=== PATIENT | female | born 1955 | race Two or more races ===

== ENCOUNTER → 2016-05-04 | Outpatient (CLI) | payer OTHER ==
[~2016-05-04] MED LIST: ASPIRIN (CHILDR81 MG PO; ATIVAN 0.5MG0.5 MG PO; DDAVP0.1 MG PO; DESMOPRESSIN NS; ELAVIL25 MG PO; KEPPRA500 M1 PO; NASAL SPRAY30 M1 NS; NORCO 5-325 TA1 EACH PO; PRILOSEC20 MG PO; PRINIVIL OR ZES10 MG PO; REMERON15 M2 PO; TYLENOL325 MG PO; ULTRAM50 MG PO; ZOFRAN4 MG PO; ZOLOFT25 M1 PO
== END | disposition disaster alternative care site (69) ==
LOC: LHSC 15:50
DX: D12.0 Benign neoplasm of cecum (principal); Z12.11 Encounter for screening for malignant neoplasm of colon; K57.30 Diverticulosis of large intestine without perforation or abscess without bleeding

== ENCOUNTER 2016-05-16 14:00 | Inpatient (IN) | payer OTHER ==
[~2016-05-16] VITALS: Ht 162.6 cm; Wt 85.0 kg
--- NOTE | ~2016-05-16 | CON ---
PATIENT'S NAME: [facility] AGE: 60 Y [address] ROOM: [place] [address] [place] [facility] [place] DATE: 05/21/2016 Consultation DISCHARGE DATE: FAMILY PHYSICIAN: Gladys Jeff MD ATTENDING PHYSICIAN: Mal Garza DATE OF CONSULTATION: 05/21/2016 REFERRING PHYSICIAN: PORSCHE MARLEY MD REASON FOR CONSULTATION: Medical management. HISTORY OF PRESENT ILLNESS: The patient is a 60-year-old female, unfortunately not a very forthcoming historian, who does have a past medical history of a cerebral aneurysm with questionable rupture, clipping, and resulting diabetes insipidus. The patient is postop day #0 for resection of right-sided colon adenoma. Medical management has been requested for the care of the patient. At this point, the patient is being seen in the recovery room. Her primary concern is anxiety over having been here for a very long time. She denies any shortness of breath, chest pain, nausea, vomiting, or palpitations. REVIEW OF SYSTEMS: All systems have been reviewed and negative except pertinent positives mentioned above. PAST MEDICAL HISTORY: Not complete due to the patient's noncooperation but is significant for essential hypertension; diabetes insipidus, on intranasal DDAVP; history of cerebral aneurysm. SURGICAL HISTORY: Not fully known, the patient is not very forthcoming. SOCIAL HISTORY: Denies any ongoing toxic habits. FAMILY HISTORY: Significant for colon cancer in her mother. CURRENT MEDICATIONS: 1. Amitriptyline. 2. Aspirin. 3. Desmopressin. PATIENT'S NAME: [facility] AGE: 60 Y [address] ROOM: [place] [address] [place] [facility] [place] DATE: 05/21/2016 Consultation DISCHARGE DATE: FAMILY PHYSICIAN: Gladys Jeff MD ATTENDING PHYSICIAN: Mal Garza 4. Hydrocodone/acetaminophen. 5. Lisinopril. 6. Lorazepam. 7. Omeprazole. 8. Ondansetron. PHYSICAL EXAMINATION: VITAL SIGNS: Her heart rate is 95, blood pressure is 125/65, saturating 88% on room air and 92% on nasal cannula, afebrile, respirations 16. GENERAL: Appears as a well-developed, well-nourished, middle-aged female, in no acute distress, though visibly irritated. NEUROLOGIC: Nonfocal. EYES: Pupils are equal and reactive to light. LYMPHATIC: No cervical lymphadenopathy. ENDOCRINE: No thyromegaly. LUNGS: Clear to auscultation with a diminished inspiratory effort. GI: Deferred. VASCULAR: Shows 2+ pedal pulses. SKIN: Warm and dry. PSYCHIATRIC: Slightly irritated mood and difficulty remembering facts that I would expect her to remember. LABORATORY DATA: No studies are available as of yet. IMPRESSION AND RECOMMENDATIONS: This is a 60-year-old female, postop day #0 for resection of right-sided colon cancer. Individual problems to be addressed. 1. Essential hypertension. Recommend continuing the patient on lisinopril as you already have. We will monitor her electrolytes and blood pressure. 2. Diabetes insipidus. The patient has been continued on her DDAVP and we will monitor her electrolytes as part of postop course. 3. Anxiety. The patient has been continued on her lorazepam. 4. Deep venous thrombosis prophylaxis as per primary team. Gastrointestinal prophylaxis as per primary team. We will follow the patient with you. Thank you for allowing us to participate in the care of this patient. Time dedicated to this patient's encounter is 25 minutes. PORSCHE MARLEY MD PATIENT'S NAME: CHATO BRITO [facility] AGE: 60 Y [address] ROOM: [address] [address] [place] [facility] [place] DATE: 05/21/2016 Consultation DISCHARGE DATE: FAMILY PHYSICIAN: Gladys Jeff MD ATTENDING PHYSICIAN: Mal Garza/margaux /[id number] d: 05/22/16 0045 t: 05/27/16 1222, CONSULTATION REPORT
--- NOTE | ~2016-05-16 | CON ---
PATIENT'S NAME: [facility] AGE: 60 Y [address] ROOM: [place] [address] LOCATION: [facility] [place]MIT DATE: 05/21/2016 Consultation DISCHARGE DATE: FAMILY PHYSICIAN: Gladys Jeff MD ATTENDING PHYSICIAN: Mal Garza DATE OF CONSULTATION: 05/22/2016 REFERRING PHYSICIAN: PORSCHE MARLEY MD CARDIOLOGY CONSULTATION REASON FOR CARDIOLOGY CONSULTATION: Bradycardia. HISTORY OF PRESENT ILLNESS: This is a 60-year-old female, admitted with a need for a colon resection of a right-sided colon adenoma. 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 She has a previous history which includes hypertension, anxiety, history of a brain aneurysm clipping about 2 years ago, and subsequent diabetes insipidus for which she uses DDAVP. At the time of this consult, she is resting comfortably in bed without current complaints. She does admit to having previous complaints of palpitations and tachycardia, especially with anxiety attacks, but she currently has no complaints of chest pain, shortness of breath, dyspnea on exertion, or palpitations. She does admit to some nausea, but denies vomiting. Once again, denies overall chest pain or difficulty with shortness of breath or dyspnea on exertion. She denies any presyncope or syncope, and is unaware of her bradycardia episodes other than the nurses informing her. She had no pre-emptive aura and was unable to tell a difference from her regular heart rate. PAST MEDICAL HISTORY: As listed in the HPI. FAMILY HISTORY: The patient's mother had a history of colon cancer. Her father had a history of aortic aneurysm as well as heart disease, and she has a brother with a history of heart disease. SOCIAL HISTORY: The patient is a current daily smoker. She smokes one pack per day and has done so for the last 40 years. She denies alcohol or illicit drug use. CURRENT MEDICATIONS: 1. Protonix 40 mg IV daily. PATIENT'S NAME: [facility] AGE: 60 Y [address] ROOM: [address] [address] LOCATION: [facility] [place] ADMIT DATE: 05/21/2016 Consultation DISCHARGE DATE: FAMILY PHYSICIAN: Gladys Jeff MD ATTENDING PHYSICIAN: Mal Garza 2. KCl 20 mEq IV. 3. Ofirmev 1000 mg IV every 6 hours. 4. Morphine sulfate SENIOR INFORMATION SYSTEMS ARCHITECT. 5. Aspirin 81 mg p.o. daily. 6. Ativan 0.5 mg p.o. daily in the evening. 7. DDAVP 0.3 mg p.o. twice daily. 8. Elavil 25 mg p.o. daily in the evening. 9. Prinivil 10 mg p.o. daily. 10. Protonix 40 mg p.o. daily. 11. Lovenox 40 mg subcutaneous daily. 12. Nicoderm 21 mg transdermally daily. MEDICATION ALLERGIES: Penicillin causing hives. REVIEW OF SYSTEMS: Pertinent positive review of systems are listed in the HPI. All other review of systems are evaluated and negative. LABORATORY DATA AND IMAGING STUDIES: Diagnostics: CMS evaluation shows a sodium of 152, potassium 3.6, BUN of 13, creatinine 0.7, and a glucose of 122. CBC evaluation shows a white blood cell count of 13.4, hemoglobin of 13.6, hematocrit of 44.0, and platelets of 172,000. She has a magnesium level of 2.1, TSH of 1.26, and a free T4 of 1.1. She also has a proBNP of 335. PHYSICAL EXAMINATION: VITAL SIGNS: Temperature 97.8, pulse 57, respirations 15, blood pressure 135/65, and O2 saturation 93% on 2 L nasal cannula. The patient weighs 85 kg. SKIN: [place], warm, and dry. EYES: Sclerae clear. No xanthelasmas. ENT: Oral mucosa is pink and moist. No jugular venous distention. No carotid bruits. CHEST: Respirations are even and unlabored. LUNGS: Clear to auscultation. HEART: Irregularly irregular rate and rhythm. She shows a sinus arrhythmia on her EKG with some noted sinus bradycardia. Normal S1 and S2. No murmurs, rubs, or gallops. ABDOMEN: Soft and slightly tender to palpation. She also has hypoactive bowel sounds x4. MUSCULOSKELETAL: Equal muscle strength in the upper and lower extremities bilaterally against resistance. EXTREMITIES: Peripheral pulses palpable. No clubbing, cyanosis, or edema. PSYCHIATRIC: Alert and oriented x2. She is disoriented to time and was initially unsure of how long she had been in the hospital, but she is also PATIENT'S NAME: CHATO BRITO [facility] AGE: 60 Y [address] ROOM: [address] [address] LOCATION: [facility] [place] ADMIT DATE: 05/21/2016 Consultation DISCHARGE DATE: FAMILY PHYSICIAN: Gladys Jeff MD ATTENDING PHYSICIAN: Mal Garza noted to be slightly drowsy from her SENIOR INFORMATION SYSTEMS ARCHITECT. IMPRESSION AND PLAN: Per Dr. Ross: 1. Sinus arrhythmia with bradycardia. Her TSH is within normal levels. We will continue to observe on telemetry. Question if this is possibly sleep-related. Her EKG shows no acute ST changes, and she does have a QTc within normal limits of 429. 2. Need to rule out coronary artery disease. We will check a set of cardiac enzymes now and every 6 hours x3 values as well as an echocardiogram to fully evaluate ejection fraction as well as to look for wall motion and valvular abnormalities. We will check a lipid panel, and an EKG again in the a.m. 3. Hypertension. 4. Colon adenoma status post resection. 5. History of diabetes insipidus with use of DDAVP. Once again, this is a 60-year-old female, admitted for an elective laparoscopic-assisted right hemicolectomy. She was found to have some bradycardia and an occasional two-second pause. We will continue to monitor, evaluate, and treat as appropriate. Thank you for this consult. Thank you for allowing [facility] to interact in the care of this patient. HIMANSHU ALCARAZ APRN FOR GURPREET-MD PENNY YO/armidal /[id number] d: 05/23/162 t: 05/31/16 1432, CONSULTATION REPORT
--- NOTE | ~2016-05-16 | OR ---
PATIENT'S NAME: CHATO BRITO [facility] AGE: 60 Y [address] ROOM: [address] [address] [place] [facility] [place]: 05/21/2016 OR/Procedure Report DISCHARGE DATE: FAMILY PHYSICIAN: Gladys Jeff MD ATTENDING PHYSICIAN: Mal Gonsalez SURGEON: Mal Gonsalez MD DIRECTOR OF MARKETING AND PROMOTIONS: Boaz Guzman PA-C. 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 PROCEDURE PERFORMED: Laparoscopic-assisted right hemicolectomy. ANESTHESIA: General. ESTIMATED BLOOD LOSS: Less than 50 mL. SPECIMEN: Terminal ileum, right colon, proximal transverse colon. INDICATION: The patient is a 60-year-old young lady whose mother had colon cancer, went for a screening colonoscopy per Dr. Jeff. A sessile lesion was noted around the ileocecal valve region. Biopsies taken showed adenoma, but was not resectable by endoscopic means and recommended right hemicolectomy. DESCRIPTION OF PROCEDURE: After informed consent, the patient was taken to the operating room. After general endotracheal anesthesia, the patient's abdomen was prepped and draped into a sterile field. A time-out was performed. We confirmed the patient, planned procedure and administration of preop antibiotics. We began by injecting local anesthetic prior to each incision. The first one made below the umbilicus in the midline and carried down to identify the anterior fascia through which a Veress needle inserted. Pneumoperitoneum created. Trocar and laparoscope inserted. We then placed a right lower quadrant 5 mm and left upper quadrant 5 mm port. We had a lot of adhesions from her previous open cholecystectomy in the right upper quadrant and time was spent sharply taking down these adhesions from the anterior abdominal wall. We freed up the omentum from its attachment to the right colon. We then mobilized up the terminal ileum and retracted the cecum medially and then took down the peritoneal reflection and elevated it all the way up to the midline. We progressed up to the hepatic flexure. We then lifted up the transverse colon, created a window so that we could work from both sides taking down the hepatic flexure which was stuck up to the liver. Sharply using the LigaSure, we took down the hepatic flexure. We identified the duodenum. It was not hard. We rolled the hepatic flexure medially. Once PATIENT'S NAME: CHATO BRITO [facility] AGE: 60 Y [address] ROOM: [address] [address] [place] [facility] [place] DATE: 05/21/2016 OR/Procedure Report DISCHARGE DATE: FAMILY PHYSICIAN: Gladys Jeff MD ATTENDING PHYSICIAN: Mal Gonsalez we had enough mobilization, we made a 4-inch incision in the periumbilical region and placed a wound protector. We grabbed the terminal ileum and cecum and eviscerated out through the wound. Approximately 8 inches from the ileocecal valve, we divided the terminal ileum with a ROSEMARIE 80. We used the LigaSure or 2-0 silk ties to ligate the ileocolic and right colic vessel. We then divided the point in the proximal to mid transverse colon with ROSEMARIE 80. The specimen was sent to the back table. We then placed the transverse colon, ileum, ierw-se-omra did enterotomies, fired a ROSEMARIE 80 between them to create a rvba-di-xxmr anastomosis. We then closed the enterotomy with TA 60. We closed the mesentery defect with interrupted 3-0 silks. There was no evidence of bleeding. Patent anastomosis with viable bowel noted. We dropped it back into the peritoneal cavity and placed the omentum over it. We had a correct instrument, sponge, and needle count. We closed the midline fascia with 0 looped PDS and closed the skin with subcuticular 4-0 Vicryl. Steri-Strips and sterile dressings applied. The patient tolerated the procedure well and transferred to recovery room in stable condition. MAL GONSALEZ MD WTS/modl /[id number] d: 05/23/16 08 t: 05/23/16 1742, OPERATIVE SUMMARY
--- NOTE | ~2016-05-16 | DS ---
PATIENT'S NAME: TINA BRITO [facility] AGE: 60 Y [address] ROOM: [address] [address] [place] [facility] [place] DATE: 05/21/2016 Discharge Summary DISCHARGE DATE: 05/28/2016 FAMILY PHYSICIAN: Gladys Jeff MD ATTENDING PHYSICIAN: Mal Garza DIAGNOSES: 1. Adenoma of the ileocecal valve. 2. History of brain aneurysm with subsequent diabetes insipidus, sinus arrhythmia with bradycardia, essential hypertension, anxiety. SUMMARY: Tina Brito is a 60-year-old female, who was referred to Dr. Garza by Dr. Jeff after a colonoscopy showed a mass in her cecum near the ileocecal valve. Biopsy showed adenoma. Dr. Garza discussed surgical treatment options with the patient along with risks, benefits, and alternatives. The patient was admitted to [facility] on the morning of May 21 to undergo a laparoscopic-assisted right hemicolectomy. She received Invanz 1 g IV preoperatively. Please see Dr. Garza's procedure note for specifics on the operation. Postoperatively, the patient was allowed activity as tolerated. Esposito catheter was placed to dependent drainage and removed on May 22. Lovenox was ordered for DVT prophylaxis and a morphine SOFTWARE DEVELOPER MANAGER was ordered for pain control. The hospitalist was consulted due to her history of diabetes insipidus and to help manage other medical concerns that may arise. On postop day 1, the patient was very sore. Denied nausea. Vital signs were stable. White blood cell count was 13.4. Sodium was 152. IV acetaminophen was added for pain control. PT and OT were ordered. Later that morning, the patient had some bradycardia and Cardiology was consulted. On postop day #2, the patient complained of nausea, but pain was under better control. Sodium was down to 144, potassium 3.3, phosphorus 1.8. Cardiac enzymes were negative. K-Phos 40 mEq IV over 4 hours was given. On postop day #3, sodium was down to 129. Her IV was saline locked. She was started on clear liquids. SOFTWARE DEVELOPER MANAGER was discontinued. Lincoln and Tylenol were ordered for pain control. Again, K-Phos 1 packet p.o. was given. On postop day #4, sodium was 125. On postop day #6, the patient was advanced to full liquids and subsequently a surgical soft diet. Sodium was up to 128. On postop day #7, the patient was concerned about some appointment that she thought she had today. She stated that she was tolerating diet, bowels were working. She felt that she could do this at home. Blood pressure was 108/59, pulse 84, respirations 16. Incisions were intact. Abdomen was soft. Sodium was 131, potassium 3.3. K-Phos 1 packet p.o. will be given today. Tentative arrangements are being made for the patient to discharge home today. DISCHARGE INSTRUCTIONS: Include no restrictions on diet. No lifting greater than 20 pounds. Follow up with Dr. Garza in 10 to 14 days. She will continue all of her home medications, which include Elavil 25 mg p.o. at PATIENT'S NAME: TINA BRITO [facility] AGE: 60 Y [address] ROOM: [place] [address] [place]: [facility] [place]MIT DATE: 05/21/2016 Discharge Summary DISCHARGE DATE: 05/28/2016 FAMILY PHYSICIAN: Gladys Jeff MD ATTENDING PHYSICIAN: Mal Garza bedtime, aspirin 81 mg p.o. q.a.m., Prinivil 10 mg p.o. q.a.m., Ativan 0.5 mg p.o. at bedtime, Prilosec 20 mg p.o. q.a.m., Lincoln 5/325 mg 1 to 2 p.o. q.4 hours p.r.n. pain, Zofran 8 mg p.o. q.8 hours p.r.n. nausea, and DDAVP 0.3 mg p.o. twice daily. No new prescriptions were written at this time. Final pathology results showed an adenoma of the ileocecal valve with 7 benign lymph nodes. LINA MCGRATH PA-C FOR MD MARCUS SHINE/margaux /[id number] d: 05/28/16 0828 t: 06/07/16 1033, DISCHARGE SUMMARY
--- NOTE | ~2016-05-16 | ECHO ---
Transthoracic Echocardiography Report (TTE) Demographics Patient Name ALISHA, Date of Study 05/23/2016 CHATO Henry Patient Number [id number] Visit Number [id number] Date of 1955 Room Number G3201 [facility] [id number] Gender Female Number Age 60 year(s) Referring Tomer Macias MD Indoor Landscaper/Gardener Lillie Simpson, Physician Kayla Resendez RT,RVT,RDCS Jt Mckeon Physician Interpreting Dagoberto Laguerre Tax Accounting Assistant Physician Supervising Ordering Kayla Resendez MD/MLP Physician Jt RODRIGUEZ Nurse Stress Supervisor Laboratory Conclusions Contractility Score Summary Normal Left Ventricular contractility was noted. Summary The estimated left ventricular ejection fraction is 60%. Mild concentric left ventricular hypertrophy. Diastolic assessment reveals Grade I diastolic dysfunction. No significant valvular abnormalities. Procedure Type of Study TTE procedure:2D Echocardiogram, M-Mode, Doppler , Color Doppler. Procedure Date Date: 05/23/2016 Start: 07:42 AM Study Location: Inpatient Portable Technical Quality: Adequate visualization Indications:Bradycardia. Appropriate Use Criteria: 2 Patient Status: Routine HR: 64 bpm BP: 152/87 mmHg M-Mode/2D Measurements LV Diastolic Dimension: 3.56 cm LV Systolic Dimension: 2.4 cm LV Septum Diastolic: 1.28 cm LV PW Diastolic: 1.17 cm AO Root Dimension: 2.5 cm Cardiac Output: 3.88 l/min AV Cusp Separation: 2.2 cm RV Diastolic Dimension: 3.35 cm LA volume: 33 ml LVOT: 2.1 cm RV Base: 3.08 cm LVOT VTI: 17.5 cm RV Mid: 2.79 cm LV Stroke volume: 60.58 ml TAPSE: 1.82 cm TDI-S': 11.3 cm/s Doppler Measurements AV Peak Velocity: 1.08 m/s MV Peak E-Wave: 0.66 m/s AV Peak Gradient: 4.67 mmHg MV Peak A-Wave: 0.91 m/s AV Mean Gradient: 3 mmHg MV E/A Ratio: 0.73 LVOT Peak Velocity: 0.85 m/s MV P1/2t: 83 msec MV Deceleration Time: 257 msec TR Gradient:26.21 mmHg PV Peak Velocity: 0.81 m/s Estimated RAP:3 mmHg PV Peak Gradient: 2.6 mmHg Estimated RVSP: 29 mmHg Estimated PASP: 29.21 mmHg E' Septal Velocity: 0.06 m/s A' Septal Velocity: 0.09 m/s E' Lateral Velocity: 0.06 m/s A' Lateral Velocity: 0.14 m/s Findings Left Ventricle The left ventricle is normal in size . Mild concentric left ventricular hypertrophy. Diastolic assessment reveals Grade I diastolic dysfunction. Right Ventricle Normal right ventricle structure and function. Left Atrium Normal left atrial size. Right Atrium Normal right atrial size. IVC measures 1.75 cm with inspiratory collapse. Mitral Valve Normal mitral valve structure and function. Aortic Valve Normal aortic valve structure and function. Tricuspid Valve Normal tricuspid valve structure and function. Trivial tricuspid regurgitation by color Doppler. Pulmonic Valve Normal pulmonic valve structure and function. Trivial pulmonic valve regurgitation by color Doppler. Pericardial Effusion No evidence of pericardial effusion. Miscellaneous Visualized portions of the aortic root and ascending aorta appear normal in size. Pleural Effusion No evidence of pleural effusion. Contractility Score LV regional wall motion:(0-Non visualized 1-Normal 2-Hypokinesis 3-Akinesis 4-Dyskinesis 5-Aneurysm) Signature dtt: JOHNNY GRIMES dtd: 05/23/16 0742 Physician Self Edit
[~2016-05-16 14:00] MED LIST changes: -TYLENOL325 MG PO
--- NOTE | 2016-05-21 19:24 | NUR ---
Significant Event: PATIENT ALERT AND ORIENTED X 3. HX FORGETFUL/SHORT TERM MEMORY LOSS. HX CVA'S WITH LEFT SIDED WEAKNESS. VSS. OXYGEN TITRATED TO 2L NC. ETCO2 IN PLACE WITH INITIATION OF ESCAPEMENT MAKER; 30-40s. PAIN ISSUES IN PACU. SEE EMAR FOR MEDS GIVEN. MORPHINE ESCAPEMENT MAKER INFUSING WITH DEMAND DOSE ONLY. NEEDS REMINDED TO HIT BUTTON IF NEEDED. PATIENT RATING PAIN "MORE TOLERABLE" SINCE 1300. HAS BEEN SLEEPING OFF/ON WITH EYES CLOSED. PLEASE NOTE IV OFIRMEV AND TORADOL ADMINISTRATION IN PACU. LAP SITES X 3. SPOT OF SEROSANGUINOUS DRAINAGE TO RIGHT QUADRANT ONLY, OTHERS ARE CLEAN, DRY, AND INTACT. 16 FR JOY TO DD. HX DIABETES INSIPIDOUS, STRICT I&O. 300 ML UOP. PATIENT REPOSITIONED SIDE TO SIDE IN PACU WITH PILLOWS. NPO, ICE CHIPS. FAMILY UPDATED ON PATIENT/ROOM STATUS AT 0950, 1046, 1131, 1251, 1422, 1501, 1517, 1627, 1640. PATIENT HELD IN PACU WAITING FOR ROOM FROM 1250 - 1649. Follow up:
--- NOTE | 2016-05-21 19:35 | NUR ---
Significant Event: Patient to the room at 1705 from PACU. EBL of 100 ml. Patient received a total of Fentanyl 200 mcg, Toradol 30 mg, Dilaudid 0.4 mg and Ofirmev 1 gm in PACU. Morphine MEDICAL REFERRAL COORDINATOR to demand only with 1 mg bolus and a 10 min lockout. Ambulated to the recliner from the surgery cart with assist. Esposito patent and drains yellow urine. Patient taking ice chips in orally, denies nausea. O2 at 2 l/nc with sats in the low 90's. Telemetry post op. Follow up: Monitor pain
--- NOTE | 2016-05-21 19:37 | NUR ---
PACU VITALS PLACED ON CHART.
[2016-05-22 05:10] LABS: BASOPHIL # 0.1 K/uL (0.0-0.2); BASOPHIL % 0.4 %; EOSINOPHIL # 0.4 K/uL (0.0-0.5); EOSINOPHIL % 2.8 %; HEMOGLOBIN 13.6 g/dL (10.0-15.0); IMMATURE GRANULOCYTE # 0.1 K/uL (0.0-0.3); IMMATURE GRANULOCYTE % 0.4 %; LYMPHOCYTE # 2.3 K/uL (0.8-4.0); LYMPHOCYTE % 16.8 %; MCH 29.6 pg (27.0-34.0); MCHC 30.9 gm/dL (32.0-36.5); MCV 95.9 fl (83.0-98.0); MONOCYTE # 0.8 K/uL (0.0-1.0); MONOCYTE % 6.2 %; MPV 10.7 fl (9.4-12.4); NEUTROPHIL # (ANC) 9.9 K/uL (1.8-7.8); NEUTROPHIL % 73.4 %; NRBC % 0 /100WBC (0-0.00); PLATELET COUNT 172 K/uL (150-450); RBC 4.59 M/uL (3.50-5.50); RDW-CV 15.2 % (11.9-14.6); WBC 13.4 K/uL (4.0-11.0)
[2016-05-22 05:22] LABS: BLOOD UREA NITROGEN 13 mg/dL (6-24); CALCIUM 7.7 mg/dL (8.5-10.5); CO2 27 mMol/L (22-32); CREATININE 0.7 mg/dL (0.5-1.1); ESTIMATED GFR (MDRD EQUATION) > 60; POTASSIUM 3.6 mMol/L (3.7-5.1)
[2016-05-22 05:30] LABS: ANION GAP 9.6 (10.0-19.0); CHLORIDE 119 mMol/L (96-110); SODIUM 152 mMol/L (135-145)
--- NOTE | 2016-05-22 07:01 | NUR ---
Significant Event:PT IS A/ O X3 BUT FORGETFUL. PT HAS MIDLINE TO L UPPER ARM W/ D5 1/2 NS@ 125. MORPHINE RECONSTRUCTIVE SURGEON W/ 1MG DEMAND. LAP SITES X3 TO ABDOMEN W/ YON AND TAGEDERMS. HAVE SMALL SPOT OF SHADOW DRAINAGE TO BOTTOM RIGHT DRESSING. PT IS NPO W/ ICE CHIPS. PT LIKES WARM BLANKETS TO HER ABDOMEN. JOY WAS REMOVED @ SHIFT CHANGE. PT REMAINS ON 2 L PER NC TO KEEP SATS>90%. ENCOURAGE AMBULATION. NICOTINE PATCH TO RIGHT SHOULDER. Follow up:CONTINUE TO MONITOR PAIN-RECONSTRUCTIVE SURGEON.
[2016-05-22 11:28] LABS: MAGNESIUM 2.1 mg/dL (1.3-2.6)
--- NOTE | 2016-05-22 14:04 | NUR ---
Significant Event: Pt states pain tolerable with BARTENDER SERVER. MS BARTENDER SERVER at 1mg q 10 min demand. Flat affect, short term memory loss but uses call light appropriately. Refused to walk in rodrigues with therapy. Up in recliner x1 so far with much encouragement. Voiding fine. 3 stab sites to abd d/i. Bradycardiac, 39-55. Asymptomatic. Tele called around 1205, 2 second pause with bradycardia. MD notified. EKG and cardiology consult. See labs. Continues on 2 liters O2. NPO Follow up: needs encouragement to ambulate
--- NOTE | 2016-05-22 15:35 | NUR ---
Met with patient as she sat in her recliner. Introduced myself and the role of the CM department. Patient states she lives in [place] with her . She is independent with all of her ADL's. Her plan is to return home at discharge and does not anticipate having any additional needs. Will continue to follow and offer supports as needed.
[2016-05-22 16:46] LABS: CPK 187 IU/L (21-215)
[2016-05-22 22:39] LABS: CPK 176 IU/L (21-215)
[2016-05-23 03:57] LABS: BASOPHIL % 0.3 %; EOSINOPHIL # 0.6 K/uL (0.0-0.5); EOSINOPHIL % 5.7 %; HEMATOCRIT 44.7 % (33.0-46.0); HEMOGLOBIN 13.9 g/dL (10.0-15.0); IMMATURE GRANULOCYTE % 0.2 %; LYMPHOCYTE % 20.1 %; MCHC 31.1 gm/dL (32.0-36.5); MCV 96.5 fl (83.0-98.0); MONOCYTE # 0.5 K/uL (0.0-1.0); NEUTROPHIL # (ANC) 6.8 K/uL (1.8-7.8); NEUTROPHIL % 68.7 %; NRBC % 0 /100WBC (0-0.00); PLATELET COUNT 158 K/uL (150-450); RBC 4.63 M/uL (3.50-5.50); WBC 9.9 K/uL (4.0-11.0)
--- NOTE | 2016-05-23 04:03 | NUR ---
Significant Event:pt is alert but forgetful and can be confused at times. has hx of brain tumor. pt was up walking in hallway x1 this shift. had to restart pt on 1 l per nc for sats droping to mid 80's when resting. pt on tele w/ numerous calls regarding bradycardia and pauses. cardiology notified, they only want called regarding this if pause is greater than 3 seconds. midline to l upper arm has d5 w/ 20kcl @ 125. morphine clay burner has 1mg demand only w/ 10 min lockout. lap sites x3 to abd are c/d/i. pt is a 1 assist. npo with sips. pt got nauseous @ 0100 and zofran given @ that time. pt felt better after that. Follow up:encourage ambulation.
[2016-05-23 04:23] LABS: ALBUMIN 3.3 gm/dL (3.5-5.0); ANION GAP 10.3 (10.0-19.0); BLOOD UREA NITROGEN 8 mg/dL (6-24); CALCIUM 7.8 mg/dL (8.5-10.5); CHLORIDE 108 mMol/L (96-110); CO2 29 mMol/L (22-32); CREATININE 0.7 mg/dL (0.5-1.1); ESTIMATED GFR (MDRD EQUATION) > 60; PHOSPHORUS 1.8 mg/dL (2.5-4.9); POTASSIUM 3.3 mMol/L (3.7-5.1); SODIUM 144 mMol/L (135-145)
[2016-05-23 04:24] LABS: CPK 182 IU/L (21-215)
[2016-05-23 10:29] LABS: CPK 161 IU/L (21-215)
--- NOTE | 2016-05-23 18:30 | NUR ---
Significant Event: Patient up to chair and bathroom several times today. Did ambulate times 2, but should ambulate one more time tonight. Encouraged VICE PRESIDENT [employer]RI[employer]ATIONS use as needed if patient having pain. Morphine [employer] patient had 3 mg throughout the last 12 hours. No BM yet. Denies flatus. Zofran given twice--last at 1318. in to visit with patient this a.m. Diet so far has only been sips of water. Follow up: Continue to monitor.
[2016-05-24 04:55] LABS: CALCIUM 7.9 mg/dL (8.5-10.5); CHLORIDE 95 mMol/L (96-110); CO2 27 mMol/L (22-32); CREATININE 0.5 mg/dL (0.5-1.1); ESTIMATED GFR (MDRD EQUATION) > 60; PHOSPHORUS 2.4 mg/dL (2.5-4.9); POTASSIUM 3.4 mMol/L (3.7-5.1)
--- NOTE | 2016-05-24 04:57 | NUR ---
Significant Event: Patient alert and oriented X4. Forgetful at times. Voids frequently. 1PA with gait belt. I/O. Midline L) upper arm infusing fluids at 125 and morphine REAL ESTATE ASSOCIATE 1mg demand only. Patient needs help remembering when to push button. 3 lap sites to abdomen, some small amount of old drainage noted. Dressings intact. Telemetry on, no calls. 2 liters oxgyen at night. Probably can titrate in day. No nausea. Can take PO pills. ICe chips and sips of water for now. Cooperative with cares. NEeds to walk today. Follow up: Bed alarm
[2016-05-24 04:59] LABS: ANION GAP 10.4 (10.0-19.0); BLOOD UREA NITROGEN 3 mg/dL (6-24); SODIUM 129 mMol/L (135-145)
--- NOTE | 2016-05-24 11:19 | NUR ---
I have examined the student charting and find it acceptable. DIOGENES Carl
--- NOTE | 2016-05-24 17:07 | NUR ---
Significant Event:Is A/O.BOOK PUBLISHER of morphine & IV flds dc'd at 0845.Abd.drsg/stab site drsgs of gauze/tegaderm D/I.SL in Lt.upper arm.Had Camargo at 0900 & 1145.Had Zofran at 0910.Forgetful at times.Has anxiety at times.Has been amb with 1 assist in room & rodrigues.Passing no flatus yet.Voiding ok.Taking some cl.liqs. Follow up:
[2016-05-25 05:19] LABS: ALBUMIN 3.5 gm/dL (3.5-5.0); CALCIUM 8.3 mg/dL (8.5-10.5); CO2 25 mMol/L (22-32); CREATININE 0.6 mg/dL (0.5-1.1); ESTIMATED GFR (MDRD EQUATION) > 60; POTASSIUM 3.2 mMol/L (3.7-5.1); SODIUM 125 mMol/L (135-145)
[2016-05-25 05:20] LABS: ANION GAP 16.2 (10.0-19.0); BLOOD UREA NITROGEN 6 mg/dL (6-24); CHLORIDE 87 mMol/L (96-110); PHOSPHORUS 1.9 mg/dL (2.5-4.9)
--- NOTE | 2016-05-25 05:39 | NUR ---
Significant Event: Patient alert and oriented X4. Forgetful at times. Bed alarm on at all times, does seem to get more confused at night. Had an episode of ripping of telemetry and getting out of bed this shfit. Saline lock to L) upper arm midline. Zofran given X1. Moderated emesis around 2029. Bertrand given around 010. Relief noted. Slept some this shift, but was very anxious. Cooperavitve with cares. Walks with walker and gait belt. Vitals stable and on room air. Follow up: Monitor nausea
--- NOTE | 2016-05-25 11:38 | NUR ---
I have examined the student charting and find it acceptable. DIOGENES Carl
--- NOTE | 2016-05-25 12:07 | NUR ---
Attempted to see pt twice this morning. Pt refused both times as she was tired and did not want to do therapy at this time. will attempt again this afternoon Anne-Marie Iniguez, PT 05/25/16
--- NOTE | 2016-05-25 14:58 | NUR ---
A-SCREENED D/T LOS S/P R)HEMICOLECTOMY. NO BM SINCE ADMIT. (+) N/V HT: 64 IN. WT: 85.0 KG. BMI 32.1 LABS: NA 125, K+ 3.2, GLU 81, BUN 6, ALB 3.5 MEDS: ZESTRIL, MORPHINE, NORCO, ATIVAN, DDAVP, ELAVIL, ZOFRAN, PROTONIX DIET RX: CLEAR LIQUIDS. PO INTAKE IS POOR; SIPS/BITES-25% EST NUTR NEEDS: 0595-2681 KCALS (20-25 KCALS/KG) 81-108 GM PROTEIN (1.5-2.0 GM/KG IBW) 1 ML FLUID/KCAL D-AT NUTRITION RISK W/INADEQUATE INTAKE OF NUTRIENTS R/T ALTERED GI FXN AEB RECENT SURGERY, N/V, INTAKE RECORDS, CLEAR LIQUID DIET. I-ADD ENSURE CLEAR TID TO PROVIDE ADDITIONAL NUTRIENTS M/E-GOAL: PO INTAKE >/=505 BY NEXT F/U 1)F/U DIET RX, PO INTAKE, SUPPLEMENT, GI, AND POC (3-5 DAYS) 2)ASSIST NEEDED
--- NOTE | 2016-05-25 16:06 | NUR ---
Significant Event:Is A/O.Seems more forgetful today.Has not been drinking much.Has been refusing anything to eat.Abd.drsg removed today.Steristrips intact.SL upper Lt.arm.Had zofran IV & norco earlier this morning.Denies much pain.States passing no flatus & no stools.Voiding ok.Amb in rodrigues with 1 assists.Needs much encouragement to do any activity or walks.Gets alittle upset at times & says ok thats enough,"we're going back".Has flat affect.Has been thinking all day that told her she could go home today.Na was 125 & potassium low. Follow up:
[2016-05-26 04:55] LABS: ALBUMIN 3.5 gm/dL (3.5-5.0); ANION GAP 17.6 (10.0-19.0); BLOOD UREA NITROGEN 6 mg/dL (6-24); CALCIUM 8.1 mg/dL (8.5-10.5); CHLORIDE 91 mMol/L (96-110); CO2 20 mMol/L (22-32); CREATININE 0.5 mg/dL (0.5-1.1); ESTIMATED GFR (MDRD EQUATION) > 60; POTASSIUM 3.6 mMol/L (3.7-5.1); SODIUM 125 mMol/L (135-145)
[2016-05-26 04:56] LABS: PHOSPHORUS 1.7 mg/dL (2.5-4.9)
--- NOTE | 2016-05-26 05:25 | NUR ---
Significant EVENT: PT IS DISORIENTED TO SITUATION AND TIME. PT NEEDS BED ALARM ON AT ALL TIMES BUT HAS FIGURED OUT HOW TO SHUT IT OFF AT TIMES. PT UP IN HALLWAYS X3. STAB SITES OPEN TO AIR. TELE W/ NO CALLS. MIDLINE TO L UPPER ARM. FLUID REST OF 100ML, NEED TO ENCOURAGE SALTY FLUIDS RATHER THAN WATER. NA HAS BEEN LOW IN THE 120'S. PT RECIEVED IV MAGNESIUM DURING THIS SHIFT. PT HAS BEEN UP FREQUENTLY TO VOID SMALL AMOUNTS. PT HAS HX OF BRAIN ANURISM WITH CONFUSION AT HOME. PT HAS NOT HAD A BM SINCE SURGERY.
--- NOTE | 2016-05-26 18:30 | NUR ---
Significant Event: Patient would awake for pills but then refused to get up. Did work with therapy once and ambulated, the rest she refused. Still has some confusion--wanting to know where her purse was-- in room at this time and explained they had left her purse at home when she came in for surgery. Patient did say that she was upset, did find a chicken broth that patient would drink--nurse strained a can of chicken noodle soup and gave patient the broth. Patient stated that this was drinkable and also had a diet pepsi for supper. Otherwise only had a diet pepsi during the day and a couple of sips with her meds of water. Patient did at shift change have a BM-moderate/loose. Will let Dr. Garza know in the a.m. of this. Patient has had q4h sodium levels drawn--level at 1600 was 128 which is an improvement over the 126 she was at 0800 this a.m. Follow up: Continue to monitor, hopefully advance diet in the a.m.
--- NOTE | 2016-05-27 02:14 | NUR ---
Significant Event: Patient has been up ambulating in the hallway several times this shift with , walker and gaitbelt. States she is tired of sitting around in the hospital. Na+ levels every 6 hours last was 128 at 2030. Denies pain. Vitals stable. Had one loose BM this shift. Flat affect. Follow up: Continue to monitor.
[2016-05-27 05:38] LABS: BASOPHIL % 0.4 %; EOSINOPHIL # 0.6 K/uL (0.0-0.5); EOSINOPHIL % 7.3 %; HEMATOCRIT 45.1 % (33.0-46.0); HEMOGLOBIN 15.7 g/dL (10.0-15.0); IMMATURE GRANULOCYTE % 0.3 %; LYMPHOCYTE # 1.5 K/uL (0.8-4.0); LYMPHOCYTE % 19.2 %; MCH 30.4 pg (27.0-34.0); MCHC 34.8 gm/dL (32.0-36.5); MONOCYTE # 0.7 K/uL (0.0-1.0); MONOCYTE % 8.5 %; MPV 10.9 fl (9.4-12.4); NEUTROPHIL # (ANC) 5.1 K/uL (1.8-7.8); NEUTROPHIL % 64.3 %; NRBC % 0 /100WBC (0-0.00); RBC 5.17 M/uL (3.50-5.50); RDW-CV 13.2 % (11.9-14.6); WBC 7.9 K/uL (4.0-11.0)
[2016-05-27 05:40] LABS: MCV 87.2 fl (83.0-98.0); PLATELET COUNT 202 K/uL (150-450)
[2016-05-27 05:58] LABS: ALBUMIN 3.4 gm/dL (3.5-5.0); CALCIUM 8.7 mg/dL (8.5-10.5); CHLORIDE 96 mMol/L (96-110); CREATININE 0.6 mg/dL (0.5-1.1); ESTIMATED GFR (MDRD EQUATION) > 60; PHOSPHORUS 2.1 mg/dL (2.5-4.9); POTASSIUM 3.4 mMol/L (3.7-5.1); SODIUM 128 mMol/L (135-145)
[2016-05-27 06:01] LABS: ANION GAP 19.4 (10.0-19.0); BLOOD UREA NITROGEN 10 mg/dL (6-24); CO2 16 mMol/L (22-32)
--- NOTE | 2016-05-27 16:01 | NUR ---
Significant Event: Patient up ad diego in room and steady on feet. here this a.m. and then went home to take care of the animals. Patient had full liquid breakfast and then will have soft diet for dinner. Patient has had 500 ml orally of 1,000 ml fluid restriction. Denies pain/nausea. If tolerates diet tonight, will likely go home in the a.m. Follow up: Continue to monitor.
[2016-05-27 17:28] LABS: BLOOD UREA NITROGEN 15 mg/dL (6-24); CALCIUM 8.7 mg/dL (8.5-10.5); CHLORIDE 97 mMol/L (96-110); CREATININE 0.6 mg/dL (0.5-1.1); ESTIMATED GFR (MDRD EQUATION) > 60; SODIUM 129 mMol/L (135-145)
[2016-05-27 17:32] LABS: ANION GAP 19.9 (10.0-19.0); CO2 16 mMol/L (22-32); POTASSIUM 3.9 mMol/L (3.7-5.1)
--- NOTE | 2016-05-28 05:32 | NUR ---
Significant Event: Patient confused at times, bed alarm on for safety. Gets around well with gait belt and one assist. Has ambulated in hallway, tolerating surgical soft diet. Denies pain or nausea. Na+129 this am. Follow up: Probable discharge today.
[2016-05-28 06:26] LABS: ANION GAP 16.3 (10.0-19.0); BLOOD UREA NITROGEN 11 mg/dL (6-24); CALCIUM 8.9 mg/dL (8.5-10.5); CHLORIDE 96 mMol/L (96-110); CO2 22 mMol/L (22-32); CREATININE 0.6 mg/dL (0.5-1.1); ESTIMATED GFR (MDRD EQUATION) > 60; POTASSIUM 3.3 mMol/L (3.7-5.1); SODIUM 131 mMol/L (135-145)
--- NOTE | 2016-05-28 15:59 | NUR ---
Met with patient once again before discharge. She states that she has no needs or concerns with discharging to home. She is just waiting for her IV's to be taken out so she can get dressed and then call her to come and pick her up. She already asked the TOBAC[employer] DRUMMER Peri to take out her IV and Peri was going to talk to patient's nurse. No other needs from the CM department. Wished her well.
--- NOTE | 2016-05-28 16:20 | NUR ---
Attempted to see pt twice in the morning and afternoon and pt refused all 4 times. pt states she doesn't feel good and does not want to do any therapy at this time. Pt states she is leaving today. If still here tomorrow will attempt to see. Anne-Marie Iniguez, PT
[2016-05-28] MEDS ORDERED: TYLENOL325 MG PO (16:38)
--- NOTE | 2016-05-28 16:51 | NUR ---
D: Orders received for the patient to be discharged to home. I: Dismissal instructions were prepared and reviewed with the patient virtually. The following was discussed including Nataliia teaching sheets provided: Colon Resection, Discharge instructions, Discharge instructions for Hyponatremia, Understanding Bradycardia and Preventing DVT. Reviewed follow up appoinments with Dr. Garza and Dr. Jeff. Only new medication was Tylenol and it can be bought over the counter. R: The patient verbalized understanding of the discharge education at the time of review with no further questions. P: The above information was shared with the primary nurse and the charge nurse that the patient education was complete. The patient is ready for discharge to the front door via wheel chair by nursing staff.
--- NOTE | 2016-05-28 17:44 | NUR ---
Discharge Summary: Patient is alert and oriented. VSS. Room air. Midline to left upper arm removed without complications. Patient telemetry removed. Education copies and prescripitions were given to pt along with follow up doctor appointment information. Pt was dressed and wheeled to north from doors and left for home with .
== END 2016-05-28 17:31 | disposition disaster alternative care site (69) | DRG 330 ==
LOC: GMSU 05-21 05:49
PROVIDERS: Internal Medicine; Nurse Practitioner Family; Physician Assistant; ADMIT Surgery
PROC: 0DTF4ZZ Resection of Right Large Intestine, Percutaneous Endoscopic Approach (ICD-10-PCS; principal; 2016-05-21)
DX: D12.0 Benign neoplasm of cecum (principal); E23.2 Diabetes insipidus; I10 Essential (primary) hypertension; F41.9 Anxiety disorder, unspecified; Z86.73 Personal history of transient ischemic attack (TIA), and cerebral infarction without residual deficits; Z85.828 Personal history of other malignant neoplasm of skin; F17.210 Nicotine dependence, cigarettes, uncomplicated
CPT/HCPCS: C1751; C9113; J0131; J0690; J1100; J1170; J1335; J1650; J1885; J2001; J2250; J2270; J2405; J3010; J3475; J3480; J7030; J7050; J7060